=== PATIENT | female | born 1975 | race Caucasian/White ===

== ENCOUNTER → 2017-02-26 | Outpatient (CLI) | payer BC | LOC: FIMAGING 07:37 | PROVIDERS: ATTEND Advanced Practice Midwife | DX: O09.512 Supervision of elderly primigravida, second trimester (principal); Z3A.22 22 weeks gestation of pregnancy ==

== ENCOUNTER 2017-06-27 05:15 | Inpatient (IN) | payer BC ==
[2017-06-27] MEDS ORDERED: TERBUTALINE SULFATE 1 MG/ML VIAL IV PRN (05:42)
[2017-06-27] MEDS ORDERED: OXYTOCIN/RINGERS LACTATE 1,000 ML IV PRN (05:42)
[2017-06-27] MEDS ORDERED: IBUPROFEN 600 MG TAB PO PRN (05:42)
[2017-06-27] MEDS ORDERED: EPSOM SALT 454 GM TP PRN (05:42)
[2017-06-27] MEDS ORDERED: MISOPROSTOL 200 MCG TAB PO PRN (05:42)
[2017-06-27] MEDS ORDERED: OLIVE OIL 118 ML BTL MISC PRN (05:42)
[2017-06-27] MEDS ORDERED: AMMONIA AROMATIC 1 EACH AMP IH PRN (05:42)
[2017-06-27] MEDS ORDERED: LR 1,000 ML IV PRN (05:42)
[2017-06-27] MEDS ORDERED: LIDOCAINE 1% 300 MG/30 ML SDV SC PRN (05:42)
[2017-06-27 06:42] LABS: PLATELET COUNT 146 10^3/uL (150-400)
[2017-06-27] MEDS ORDERED: LR 500 ML IV PRN (07:05)
--- NOTE | 2017-06-27 07:10 | PDGENHP ---
History and Physical History and Physical: CARE: [facility] HPI: Cristine Marquez is a [id number] with IUP@39-2 that presents to L&D for IOL. She denies any contractions, LOF, VB. She reports +FM EDC: 07/02/17 which is based on LMP: 09/01/16 which is known and consistent with Ultrasound at 7 weeks. Her is complicated by: AMA Review of Systems: Constitutional: Denies any fever, chills, or fatigue HEENT: denies any visual changes, difficulty swallowing, hearing loss Cardiovascular: Denies any chest pain, palpitations, leg swelling Respiratory: denies any cough, wheezing, or shortness of breathe GI: Denies any nausea, vomiting, diarrhea, constipation : denies any dysuria, urgency, frequency, vaginal bleeding Musculoskeletal: denies any muscle or bone pain Skin: denies any rashes Neuro: denies any headache, seizures, lightheadedness, dizziness, or loss of consciousness Psychiatric: denies any depression, anxiety, or SI/HI thoughts HISTORY: Previous OB history: G1 Past medical history: noncontributory Past surgical history: [ ] Medications: PNV Allergies (list reaction): sulfa- fever, hives LABS: Rh: AB positive ABS: Neg Rubella: Immune HbsAg: NR HIV: NR VDRL: NR 1hr: 100 GC: Neg Chlamydia: Neg Pap: Normal GBS: negative BMI: (prepreg) 19 PHYSICAL EXAM: Constitutional: WN, A&Ox3 HEENT: normocephalic atraumatic, supple Heart: RRR, no murmur Chest: CTA-B Abdomen: Soft, nontender, gravid SVE: 1/70/-2 Extremities: no edema, negative homans sign Neuro: grossly normal Psych: normal affect assessment: Reassuring FHTs, baseline 130, +accels, no decels, moderate variability Contractions: toco none Assessment: 1) [id number] with IUP@ 39-2wks 2) IOL 3) GBS negative 4) Cat 1 FHR tracing Plan: 1) Admit to L&D 2) pierce balloon placed 3) start pitocin in 2hours 4) pain management PRN 5) AROM when able 6) anticipate
[2017-06-27] MEDS: OXYTOCIN/RINGERS LACTATE 500 ML IV SCH (09:10)
[2017-06-27] MEDS ORDERED: AMMONIA AROMATIC 1 EACH AMP IH ONE (10:22)
[2017-06-27] MEDS ORDERED: OLIVE OIL 118 ML BTL ONE (10:22)
[2017-06-27] MEDS ORDERED: LIDOCAINE 1% 300 MG/30 ML SDV ONE (10:22)
[2017-06-27] MEDS ORDERED: TERBUTALINE SULFATE 1 MG/ML VIAL ONE (10:23)
[2017-06-27] MEDS ORDERED: MISOPROSTOL 200 MCG TAB ONE (10:23)
[2017-06-27] MEDS ORDERED: OXYTOCIN 10 UNIT/ML VIAL ONE (10:23)
--- NOTE | 2017-06-27 11:52 | OBPROG ---
Labor Progress Note Assessment/Plan: Assessment: strip check FHR 145 +accels, no decels, mod BTBV contractions q 3-5min Pitocin @6mU Objective: 06/27/17 05:35 Patient ABO/Rh AB POSITIVE 06/27/17 05:35 Oxytocin Orders Assessment - Pre-Induction/Augmentation Assessment Gestational Age: 39 week(s) and 2 day(s) ICD10 Worksheet Patient Problems: Problems Problem Status Onset AMA (advanced maternal age) primigravida 35+ Acute Encounter for induction of labor Acute
--- NOTE | 2017-06-27 15:09 | OBPROG ---
Labor Progress Note Assessment/Plan: Assessment: [id number] with IUP@39-2wks IOL AMA GBS Negative CAt 1 FHR tracing AROM- Clear Plan: Cont pitocin pain management PRN reassess 2-4hr/PRN anticipate 06/27/17 15:11 06/27/17 15:12 Subjective/Intrapartum Course: 06/27/17 15:08 Pt doing well, denies any pain. Agreeable to arom at this time. she is ambulating. Objective: 06/27/17 05:35 Patient ABO/Rh AB POSITIVE 06/27/17 05:35 - SVE Dilation (cm): 3 Effacement (%): 75 Station: -1 Membranes: AROM Amniotic Fluid Color: Clear - Contraction Pattern Assessment Current Contraction Pattern: Regular - Procedures Non-surgical Procedures: Amniotomy Oxytocin Orders Assessment - Pre-Induction/Augmentation Assessment Gestational Age: 39 week(s) and 2 day(s) ICD10 Worksheet Patient Problems: Problems Problem Status Onset AMA (advanced maternal age) primigravida 35+ Acute Encounter for induction of labor Acute - ICD10 Problem Qualifiers (1) Encounter for induction of labor (2) AMA (advanced maternal age) primigravida 35+
--- NOTE | 2017-06-27 15:58 | OBPROG ---
Labor Progress Note Assessment/Plan: Assessment: [id number] with IUP@39-2wks AMA IOL GBS Negative cat 1 FHR tracing Plan: cont pitocin Recommended AROM- which pt declines at this time, will consider in 1 hr pain management PRN anticipate Subjective/Intrapartum Course: Pt doing well, she denies any pain. She is ambulating. FOB/Dental Professional @ BS, supportive. Objective: 06/27/17 05:35 Patient ABO/Rh AB POSITIVE 06/27/17 05:35 - SVE Dilation (cm): 3 Effacement (%): 75 Station: -1 - Contraction Pattern Assessment Current Contraction Pattern: Regular - FHR Assessment Salas FHR (bpm): 135 FHR Pattern Variability: Moderate FHR Category: 1 Oxytocin Orders Assessment - Pre-Induction/Augmentation Assessment Gestational Age: 39 week(s) and 2 day(s) ICD10 Worksheet Patient Problems: Problems Problem Status Onset AMA (advanced maternal age) primigravida 35+ Acute Encounter for induction of labor Acute
[2017-06-27] MEDS ORDERED: fentaNYL 100 MCG/2 ML INJ ONE (17:35)
[2017-06-27] MEDS ORDERED: PHENYLEPHRINE HCL 100 MCG/ML SYR ONE (17:35)
[2017-06-27] MEDS ORDERED: fentaNYL 200 MCG, BUPIVACAINE 0.5% 20 ML in NS 100 ML EP SCH (18:00)
--- NOTE | 2017-06-27 18:14 | PREANESOB ---
Obstetric Pre-Anesthesia Info - General Info Proposed Procedure: aug labor : 2 Para: 0 FLIP: 07/02/17 Gestational Age: 39 week(s) and 2 day(s) - Info Status: Full Term Monitors: External FHR Pattern: Reassuring - Labor Status Cervical Dilation per last OB SVE: 3 Station per last OB SVE: -1 Amniotic Fluid Color: Clear Indications for Labor Analgesia: Augmentation of Labor, Pain Control Labor Epidural: Yes Anesthesia Allergies/Adverse Reactions: Allergy/AdvReac Type Severity Reaction Status Date / Time Sulfa (Sulfonamide Allergy Verified 06/27/17 05:40 Antibiotics) Home Medications: Medication Instructions Recorded Dha 06/27/17 Iron 06/27/17 06/27/17 Visit Medications: Generic Name Dose Route Start Last Admin Trade Name Freq PRN Reason Stop Dose Admin Ammonia (Aromatic Spirit) 1 each 06/27/17 05:42 Ammonia Aromatic IH 07/07/17 05:41 ONCE PRN Fainting Lactated Ringer's 1,000 mls @ 0 mls/hr 06/27/17 05:42 Lr IV 06/28/17 05:41 PRN PRN SEE PROTOCOL CONDITIONS Protocol Per Protocol Oxytocin/Lactated Ringer's 1,000 mls @ 0 mls/hr 06/27/17 05:42 Pitocin 20 Units/Lr (Premix) IV PRN PRN Post bleeding Per Protocol Lactated Ringer's 500 mls @ 500 mls/hr 06/27/17 07:05 Lr IV 06/28/17 07:05 PRN PRN Maternal Hypotension Oxytocin/Lactated Ringer's 500 mls @ 0 mls/hr 06/27/17 07:30 Pitocin 30 Units/Lr (Premix) IV 12/24/17 07:29 CONT [facility] Protocol Per Protocol Fentanyl 200 mcg/ Bupivacaine 100 mls @ 0 mls/hr 06/27/17 18:00 HCl 20 ml/ Sodium Chloride EP 07/07/17 17:59 CONT [facility] Protocol As Directed Ibuprofen 600 mg 06/27/17 05:42 Motrin PO ONCE PRN post , pain Lidocaine HCl 300 mg 06/27/17 05:42 Lidocaine Hcl 1% SC 12/24/17 05:41 ONCE PRN episiotomy Magnesium Sulfate 454 gm 06/27/17 05:42 Epsom Salt TP 12/24/17 05:41 Q1H PRN perineal discomfort Misoprostol 800 - 1,000 mcg 06/27/17 05:42 Cytotec PO 12/24/17 05:41 ONCE PRN Vaginal Atony/Bleeding [place] Oil 118 ml 06/27/17 05:42 Sweet Oil MISC 12/24/17 05:41 ONCE PRN perineal massage Terbutaline Sulfate 0.25 mg 06/27/17 05:42 Brethine IV 12/24/17 05:41 ONCE PRN Tachysystole Discontinued Medications Generic Name Dose Route Start Last Admin Trade Name Freq PRN Reason Stop Dose Admin Ammonia (Aromatic Spirit) Confirm 06/27/17 10:22 Ammonia Aromatic Administered 06/27/17 10:23 Dose 1 each IH .STK-MED ONE Fentanyl Confirm 06/27/17 17:35 Sublimaze Administered 06/27/17 17:36 Dose 100 mcg .ROUTE .STK-MED ONE Lidocaine HCl Confirm 06/27/17 10:22 Lidocaine Hcl 1% Administered 06/27/17 10:23 Dose 300 mg .ROUTE .STK-MED ONE Misoprostol Confirm 06/27/17 10:23 Cytotec Administered 06/27/17 10:24 Dose 1,000 mcg .ROUTE .STK-MED ONE [place] Oil Confirm 06/27/17 10:22 Sweet Oil Administered 06/27/17 10:23 Dose 118 ml .ROUTE .STK-MED ONE Oxytocin Confirm 06/27/17 10:23 Pitocin Administered 06/27/17 10:24 Dose 40 unit .ROUTE .STK-MED ONE Phenylephrine HCl Confirm 06/27/17 17:35 Neosynephrine Administered 06/27/17 17:36 Dose 1,000 mcg .ROUTE .STK-MED ONE Terbutaline Sulfate Confirm 06/27/17 10:23 Brethine Administered 06/27/17 10:24 Dose 1 mg .ROUTE .STK-MED ONE - Vital Signs Height/Weight (Nursing): Height 162.56 cm Weight 61.235 kg Labs: 06/27/17 05:35 Patient ABO/Rh AB POSITIVE 06/27/17 05:35
--- NOTE | 2017-06-27 18:14 | PDANEPAE ---
ANE History of Present Illness labor ANE Past Medical History - Cardiovascular History Hx Hypertension: No Hx Arrhythmias: No Hx Chest Pain: No Hx Coronary Artery / Peripheral Vascular Disease: No Hx CHF / Valvular Disease: No Hx Palpitations: No - Pulmonary History Hx COPD: No Hx Asthma/Reactive Airway Disease: No Hx Recent Upper Respiratory Infection: No Hx Oxygen in Use at Home: No Hx Sleep Apnea: No - Neurologic History Hx Cerebrovascular Accident: No Hx Seizures: No Hx Dementia: No - Endocrine History Hx Diabetes: No Hypothyroid: No Hyperthyroid: No - Renal History Hx Renal Disorders: No - Liver History Hx Hepatic Disorders: No - Chronic Pain History Chronic Pain: No ANE Review of Systems Review of Systems: - Exercise capacity Exercise capacity: >=4 METS ANE Patient History - Allergies Allergies/Adverse Reactions: Sulfa (Sulfonamide Antibiotics) Allergy (Verified 06/27/17 05:40) - Home Medications Home Medications: Dha 06/27/17 [Last Taken 06/26/17 15:00] Iron 06/27/17 [Last Taken Unknown] 06/27/17 [Last Taken 06/26/17 15:00] - Anes Hx Anes Hx: no prior problems - Smoking Hx Smoking Status: Never smoked ANE Labs/Vital Signs - Labs Result Diagrams: 06/27/17 05:35 - Vital Signs Height: 162.56 cm Weight: 61.235 kg ANE Physical Exam - Airway Mallampati Score: Class 2 Mouth exam: normal dental/mouth exam - Pulmonary Pulmonary: no respiratory distress - Cardiovascular Cardiovascular: regular rate and rhythym - ASA Status ASA Status: II ANE Anesthesia Plan Anesthesia Plan: spinal, epidural
[2017-06-27] MEDS ORDERED: LR 500 ML IV SCH (18:30)
[2017-06-27] MEDS ORDERED: fentaNYL 2MCG/ML/BUP 0.1% RTU 100 ML EP SCH (18:30)
--- NOTE | 2017-06-27 19:28 | OBPROG ---
Labor Progress Note Assessment/Plan: Assessment: [id number] with IUP@39-2wks AMA IOL GBS Negative cat 1 FHR tracing Plan: cont pitocin pt requesting ALYSSA at this time, anesthesia paged Subjective/Intrapartum Course: Pt breathing through contractions and states she desires ALYSSA for pain relief. She tried N2O for 5 minutes with little relief. Objective: 06/27/17 05:35 Patient ABO/Rh AB POSITIVE 06/27/17 05:35 - SVE Dilation (cm): 4 Effacement (%): 75 Station: -1 Membranes: AROM Amniotic Fluid Color: Clear - Contraction Pattern Assessment Current Contraction Pattern: Regular - Procedures Non-surgical Procedures: Amniotomy Oxytocin Orders Assessment - Pre-Induction/Augmentation Assessment Gestational Age: 39 week(s) and 2 day(s) ICD10 Worksheet Patient Problems: Problems Problem Status Onset AMA (advanced maternal age) primigravida 35+ Acute Encounter for induction of labor Acute
--- NOTE | 2017-06-27 19:30 | OBPROG ---
Labor Progress Note Assessment/Plan: Assessment: Strip check FHR cat 1: baseline 130, +Accels, no decels, mod BTBV toco: ctxs q 4-6 min SVE: 4/70/-1 Will reassess in 1-2hr if no cervical change will place IUPC Pt now comfortable with ALYSSA. 06/27/17 19:28 06/27/17 19:29 Subjective/Intrapartum Course: Pt breathing through contractions and states she desires ALYSSA for pain relief. She tried N2O for 5 minutes with little relief. Objective: 06/27/17 05:35 Patient ABO/Rh AB POSITIVE 06/27/17 05:35 - SVE Membranes: AROM Amniotic Fluid Color: Clear - Contraction Pattern Assessment Current Contraction Pattern: Regular - Procedures Non-surgical Procedures: Amniotomy Oxytocin Orders Assessment - Pre-Induction/Augmentation Assessment Gestational Age: 39 week(s) and 2 day(s) ICD10 Worksheet Patient Problems: Problems Problem Status Onset AMA (advanced maternal age) primigravida 35+ Acute Encounter for induction of labor Acute
--- NOTE | 2017-06-27 20:49 | OBPROG ---
Labor Progress Note Assessment/Plan: Assessment: [id number] with IUP@39-2wks IOL AMA GBS neg Cat 1 FHR tracing Protracted labor Plan: cont Pitocin PRN monitor IUPC/MVUs closely Dr Estevez aware of protracted labor reassess 2hr/PRN Subjective/Intrapartum Course: Pt comfortable with ALYSSA. She is feeling discouraged by minimal cervical change. Discussed POC- pt verbalizes understanding. Objective: 06/27/17 05:35 Patient ABO/Rh AB POSITIVE 06/27/17 05:35 - SVE Dilation (cm): 5 Effacement (%): 75 Station: -1 Membranes: AROM Amniotic Fluid Color: Clear - Contraction Pattern Assessment Current Contraction Pattern: Regular - FHR Assessment Salas FHR (bpm): 135 FHR Pattern Variability: Moderate FHR Category: 1 - Procedures Non-surgical Procedures: Amniotomy Oxytocin Orders Assessment - Pre-Induction/Augmentation Assessment Gestational Age: 39 week(s) and 2 day(s) ICD10 Worksheet Patient Problems: Problems Problem Status Onset AMA (advanced maternal age) primigravida 35+ Acute Encounter for induction of labor Acute
--- NOTE | 2017-06-27 23:06 | OBPROG ---
Labor Progress Note Assessment/Plan: Assessment: [id number] with IUP@39-2wks IOL AMA GBS neg Cat 1 FHR tracing Protracted labor Plan: cont Pitocin PRN monitor IUPC/MVUs closely Dr Estevez aware of protracted labor reassess 2hr/PRN Subjective/Intrapartum Course: Pt comfortable with ALYSSA. She is feeling discouraged by minimal cervical change. Discussed POC- pt verbalizes understanding. Objective: 06/27/17 05:35 Patient ABO/Rh AB POSITIVE 06/27/17 05:35 - SVE Dilation (cm): 5 Effacement (%): 90 Station: -1 Membranes: AROM Amniotic Fluid Color: Clear - Contraction Pattern Assessment Current Contraction Pattern: Regular - Procedures Non-surgical Procedures: Amniotomy Oxytocin Orders Assessment - Pre-Induction/Augmentation Assessment Gestational Age: 39 week(s) and 2 day(s) ICD10 Worksheet Patient Problems: Problems Problem Status Onset AMA (advanced maternal age) primigravida 35+ Acute Encounter for induction of labor Acute
[2017-06-28] MEDS: ACETAMINOPHEN 500 MG TAB PO PRN ×2 (01:07→08:39)
--- NOTE | 2017-06-28 02:10 | OBPROG ---
Labor Progress Note Assessment/Plan: Assessment: [id number] with IUP@39-2wks IOL AMA GBS neg Cat 1 FHR tracing Protracted labor/MVU<180 Plan: cont Pitocin Reassess 2hr/PRN discussed cervical change, will cont pitocin Subjective/Intrapartum Course: Pt comfortable with ALYSSA. She denies feeling any pain or pressure. Objective: 06/27/17 05:35 Patient ABO/Rh AB POSITIVE 06/27/17 05:35 - SVE Dilation (cm): 8 Effacement (%): 90 Station: -1 Membranes: AROM Amniotic Fluid Color: Clear - Contraction Pattern Assessment Current Contraction Pattern: Regular - Procedures Non-surgical Procedures: Amniotomy Oxytocin Orders Assessment - Pre-Induction/Augmentation Assessment Gestational Age: 39 week(s) and 2 day(s) ICD10 Worksheet Patient Problems: Problems Problem Status Onset AMA (advanced maternal age) primigravida 35+ Acute Encounter for induction of labor Acute
--- NOTE | 2017-06-28 05:35 | OBPROG ---
Labor Progress Note Assessment/Plan: Assessment: [id number] with IUP@39-2wks IOL AMA GBS neg Cat 1 FHR tracing Protracted labor Plan: cont Pitocin Reassess 2hr/PRN labor down x1 hr 06/28/17 05:34 Subjective/Intrapartum Course: Pt was uncomfortable- having left hip pain, relieved after hitting ALYSSA button. She denies any urge to push. Objective: 06/27/17 05:35 Patient ABO/Rh AB POSITIVE 06/27/17 05:35 - SVE Dilation (cm): 10 Effacement (%): 100 Station: 0 Membranes: AROM Amniotic Fluid Color: Clear - Contraction Pattern Assessment Current Contraction Pattern: Regular - Procedures Non-surgical Procedures: Amniotomy Oxytocin Orders Assessment - Pre-Induction/Augmentation Assessment Gestational Age: 39 week(s) and 2 day(s) ICD10 Worksheet Patient Problems: Problems Problem Status Onset AMA (advanced maternal age) primigravida 35+ Acute Encounter for induction of labor Acute
[2017-06-28] MEDS ORDERED: ACETAMINOPHEN 500 MG TAB PO PRN (08:33)
[2017-06-28] MEDS: LR 1,000 ML IV PRN ×2 (09:32→18:00)
[2017-06-28] MEDS ORDERED: LIDO/EPI 2% **for epidural** 20 ML SDV ONE ×2 (10:01→12:58)
[2017-06-28] MEDS: OXYTOCIN/RINGERS LACTATE 500 ML IV SCH (11:08)
[2017-06-28] MEDS ORDERED: ceFAZolin 2 GM/DEXTROSE 100 ML IV ONE ×2 (12:35→13:00)
[2017-06-28] MEDS ORDERED: CITRIC ACID/SODIUM CITRATE 30 ML UDCUP PO ONE (12:35)
[2017-06-28] MEDS ORDERED: OXYTOCIN 100 UNITS/10 ML VIAL ONE (12:57)
[2017-06-28] MEDS ORDERED: fentaNYL 100 MCG/2 ML INJ ONE (12:58)
[2017-06-28] MEDS ORDERED: LIDOCAINE 2% 5 ML SDV ONE ×2 (12:58)
[2017-06-28] MEDS ORDERED: BUPIVACAINE/DEXTROSE 7.5MG/ML 2 ML SPINAL AMP SP ONE (12:58)
[2017-06-28] MEDS ORDERED: ONDANSETRON 4 MG/2 ML VIAL ONE (12:58)
[2017-06-28] MEDS ORDERED: morphINE PF 5 MG/10 ML INJ ONE (12:59)
--- NOTE | 2017-06-28 13:33 | OBPROG ---
Labor Progress Note Assessment/Plan: Assessment: 42 y/o @39 2/7 weeks for elective IOL Plan: Patient has been pushing on and off for the last 5 hours with very little descent of head; suspect direct OP FHTs - Category I tracing Unable to apply Kiwi vacuum at this time secondary to large amount of caput and station Discussed with pt and spouse that despite strong pushing, maternal effort and multiple position changes, recommend proceeding with a PCS secondary to arrest of descent Discussed R/B/A of procedure with pt including but not limited to bleeding, infection and damage to surrounding organs Pt understands all the risks and wants to proceed with surgery at this time Abx certified addiction counselor to OR SCDs for DVT prophylaxis 06/28/17 13:33 Subjective/Intrapartum Course: Pt was uncomfortable- having left hip pain, relieved after hitting ALYSSA button. She denies any urge to push. 06/28/17 13:40 Pt was c/o LLQ pain, that is interfering with her pushing; she was re-bolused and pain resolved. She labored down and then began pushing again and now is c/o a RITTER. She is very frustrated and has tried everything she has to push baby boy out. Objective: 06/27/17 05:35 Patient ABO/Rh AB POSITIVE 06/27/17 05:35 - SVE Dilation (cm): 10 Effacement (%): 100 Station: +2 Membranes: AROM Amniotic Fluid Color: Clear - Contraction Pattern Assessment Current Contraction Pattern: Regular - FHR Assessment Salas FHR (bpm): 140 FHR Pattern Variability: Moderate FHR Category: 1 - Procedures Non-surgical Procedures: Amniotomy Oxytocin Orders Assessment - Pre-Induction/Augmentation Assessment Gestational Age: 39 week(s) and 2 day(s) ICD10 Worksheet Patient Problems: Problems Problem Status Onset AMA (advanced maternal age) primigravida 35+ Acute Encounter for induction of labor Acute
[2017-06-28] MEDS ORDERED: MIDAZOLAM 2 MG/2 ML VIAL ONE (14:23)
[2017-06-28] MEDS ORDERED: HYDROmorphONE/DILAUDID 1 MG/ML INJ IVP PRN ×3 (14:58→15:50)
[2017-06-28] MEDS ORDERED: MEPERIDINE 25 MG/0.5 ML AMP IVP PRN (14:58)
[2017-06-28] MEDS ORDERED: HYDROCODONE/APAP 5/325 TAB PO PRN (14:58)
[2017-06-28] MEDS ORDERED: NALOXONE HCL 0.4 MG/ML INJ IVP PRN ×2 (14:58)
[2017-06-28] MEDS ORDERED: PHENYLEPHRINE HCL 100 MCG/ML SYR IVP PRN (14:58)
[2017-06-28] MEDS ORDERED: ONDANSETRON 4 MG/2 ML VIAL IVP PRN ×2 (14:58)
[2017-06-28] MEDS ORDERED: fentaNYL 100 MCG/2 ML INJ IVP PRN (14:58)
[2017-06-28] MEDS ORDERED: HYDROmorphONE/DILAUDID 2 MG/ML INJ ONE ×3 (15:05→17:44)
--- NOTE | 2017-06-28 15:05 | POSTANESTH ---
Post Anesthetic Evaluation Cardiovascular Status: Normal, Stable Respiratory Status: Normal, Stable Level of Consciousness/Mental Status: Can Participate in Eval Pain Control: Adequate, Prn Tx Ordered (Pt continues to have headache and body aches similar to preop. No incisional pain at this time.) Nausea/Vomiting Control: Adequate, Prn Tx Ordered Complications Possibly Related to Anesthesia: None Noted
[2017-06-28] MEDS: HYDROmorphONE/DILAUDID 2 MG/ML INJ IVP PRN ×3 (15:15→18:11)
[2017-06-28] MEDS ORDERED: SIMETHICONE 80 MG TAB CHEW PO PRN (15:16)
[2017-06-28] MEDS ORDERED: MAGNESIUM HYDROXIDE 30 ML UDCUP PO PRN (15:16)
[2017-06-28] MEDS ORDERED: LACTULOSE 20 GM/30 ML UDCUP PO PRN (15:16)
[2017-06-28] MEDS ORDERED: BISACODYL 10 MG SUPP PR PRN (15:16)
[2017-06-28] MEDS ORDERED: POLYETHYLENE GLYCOL 3350 17 GM PKT PO PRN (15:16)
--- NOTE | 2017-06-28 15:25 | OBDEL ---
Info Type: Primary Presentation at Delivery: Vertex (LOT) L&D Analgesia/Anesthesia Type: Epidural GBS+: No Intrapartum Medications: Generic Name Dose Route Start Last Admin Trade Name Freq PRN Reason Stop Dose Admin Oxytocin/Lactated Ringer's 500 mls @ 0 mls/hr 06/27/17 07:30 06/28/17 11:08 Pitocin 30 Units/Lr (Premix) IV 12/24/17 07:29 500 mls CONT GILBERT Administration Protocol Per Protocol Lactated Ringer's 500 mls @ 0 mls/hr 06/27/17 18:30 06/27/17 17:30 Lr IV 12/24/17 18:29 500 mls CONT GILBERT Administration As Directed Lactated Ringer's 1,000 mls @ 0 mls/hr 06/28/17 09:01 06/28/17 09:32 Lr IV 12/25/17 09:00 1,000 mls PRN PRN Administration SEE PROTOCOL CONDITIONS Protocol Per Protocol Discontinued Medications Generic Name Dose Route Start Last Admin Trade Name Frestan PRN Reason Stop Dose Admin Acetaminophen 1,000 mg 06/28/17 00:43 06/28/17 08:39 Tylenol PO 12/25/17 00:42 1,000 mg Q6HRS PRN Administration Pain, Mild/Fever, Can Take PO Citric Acid/Sodium Citrate 30 ml 06/28/17 12:35 06/28/17 13:20 Bicitra PO 06/28/17 12:36 30 ml ONCALL ONE Administration Cefazolin Sodium/Dextrose 100 mls @ 200 mls/hr 06/28/17 13:00 06/28/17 13:17 Ancef 2 Gm (Premix) IV 06/28/17 13:29 100 mls ONCE ONE Administration - Infant Care Provider Drawing Press Operator/STRUCTURES MECHANIC: Sho Cerda - Hospital Course Intrapartum: Pt was uncomfortable- having left hip pain, relieved after hitting ALYSSA button. She denies any urge to push. 06/28/17 13:40 Pt was c/o LLQ pain, that is interfering with her pushing; she was re-bolused and pain resolved. She labored down and then began pushing again and now is c/o a RITTER. She is very frustrated and has tried everything she has to push baby boy out. Indications for Delivery: Elective (IOL) Vaginal Delivery - Labor and Delivery Amniotic Fluid Color: Clear Non-surgical Procedures: Amniotomy Operative Report - Delivery Pre-op Diagnoses: IUP @ 39 3/7 wks for elective IOL with arrest of descent, prolonged second stage of labor Post-op Diagnoses: IUP @ 39 3/7 wks for elective IOL with arrest of descent, prolonged second stage of labor History of Prior Section: No Number of Prior Sections: 0 Nulliparous Prior to Delivery: Yes Indications for Current Section: Arrest of Descent Procedure: Unscheduled, Low Transverse Surgeon: Candice Jain Embroiderer: Phyllis Stahl Anesthesiologist: Kit Gillis Complications: None Findings: A viable male born at 1403 in cephalic presentation with 8 and 9 Apgars. Cord clamping was delayed x 60 seconds. Cord clamped x 2 and then cut. to waiting STRUCTURES MECHANIC. Cord blood obtained. Placenta delivered intact spontaneously with 3-vc. Grossly normal appearing uterus, tubes and ovaries b/ l. Small R LARRY hematoma noted after closure of hysterotomy, no change in size throughout the closure and no active bleeding noted. Kasie was placed on uterine incision for further hemostasis. Specimen(s)/Path: Other (Specify) (none) IV Fluid (ml): 1,500 EBL: 800 cc UO: 200 cc concentrated urine Data FLIP: 07/02/17 Gestational Age: 39 week(s) and 3 day(s) ICD10 Worksheet Patient Problems: Problems Problem Status Onset AMA (advanced maternal age) primigravida 35+ Acute Encounter for induction of labor Acute
[2017-06-28] MEDS ORDERED: ZOLPIDEM TARTRATE 5 MG TAB PO PRN (18:47)
[2017-06-28] MEDS ORDERED: HYDROmorphONE/DILAUDID 2 MG/ML INJ IVP ONE (19:15)
[2017-06-28] MEDS: HYDROCODONE/APAP 5/325 TAB PO PRN (20:57)
[2017-06-29] MEDS: IBUPROFEN 600 MG TAB PO PRN ×4 (05:32→23:52)
[2017-06-29] MEDS: HYDROCODONE/APAP 5/325 TAB PO PRN ×4 (05:32→17:39)
[2017-06-29] MEDS: SENNOSIDES/DOCUSATE SODIUM TAB PO SCH ×3 (05:36→21:46)
--- NOTE | 2017-06-29 07:31 | GOP ---
[f rep st] OPERATIVE REPORT DATE OF OPERATION: 06/28/2017 SURGEON: Candice Jain DO SUBSTITUTE BUS DRIVER: RICKY Hendricks ANESTHESIA: Spinal. ANESTHESIOLOGIST: Kit Gillis MD PREOPERATIVE DIAGNOSIS: Intrauterine at 39 and 3/7 weeks, for elective induction of labor with arrest of descent, prolonged 2nd stage of labor. POSTOPERATIVE DIAGNOSIS: Intrauterine at 39 and 3/7 weeks, for elective induction of labor with arrest of descent, prolonged 2nd stage of labor. PROCEDURE PERFORMED: Primary low transverse section. FINDINGS: A viable male infant born at 1403 in cephalic presentation, left occiput transverse, with 8 and 9 Apgars. Cord clamping was delayed x60 seconds. Cord was then clamped x2 and cut, infant to waiting OPERATIONS CHIEF. Cord blood was obtained. Placenta delivered intact spontaneously with 3-vessel cord. Grossly normal-appearing uterus, tubes, and ovaries bilaterally. However, there was a small right lower uterine segment hematoma noted after closure of hysterotomy. No change in size throughout the closure. No active bleeding noted. Kasie was placed on the uterine incision for further hemostasis. ESTIMATED BLOOD LOSS: 800 cc. INDICATIONS: The patient is a 42-year-old 1, para 0, at 39 and 3/7 weeks, who presents to Labor and Delivery for induction of labor. The patient was complete early in the morning around 0200. She labored down and then became uncomfortable with left hip pain, and left lower quadrant pain. The patient then pushed on and off for about 4-5 hours with very little descent of head, suspect OP. heart tones were category 1 tracing. A kiwi vacuum was unable to be applied secondary to large amount of caput and station. Despite strong pushing and maternal effort, multiple position changes, recommend proceeding with primary secondary to arrest of descent and prolonged 2nd stage of labor. Discussed risks, benefits, alternatives of procedure with patient including, but not limited to, bleeding, infection, damage to surrounding organs , another procedure, hysterectomy. The patient understands all risks of the procedure, wants to proceed with surgery at this time. The patient was properly consented, and informed consent was obtained. DESCRIPTION OF PROCEDURE: The patient was taken to the operating room where epidural anesthesia was re-bolused. The patient was prepped and draped in the usual sterile fashion in dorsal supine position with leftward tilt. A Pfannenstiel skin incision was made with a scalpel, and carried through the underlying layer of fascia using the Bovie. The fascia was incised in midline and extended laterally using Salas scissors. Noel clamps were then used to elevate the superior aspect of fascial incision, which was elevated and the underlying rectus muscles dissected off bluntly and using Salas scissors. Attention was then turned to the inferior aspect of fascial incision, which in a similar fashion was grasped with Noel clamps, elevated, underlying rectus muscles were dissected off bluntly and using Salas scissors. Rectus muscles were then dissected in the midline. Peritoneum was identified and entered using Metzenbaum scissors. This incision was then extended superiorly and inferiorly with good visualization of bladder. Bladder blade was then inserted. Vesicouterine peritoneum was identified, entered sharply using Metzenbaum scissors. Incision was then extended laterally and the bladder flap was created digitally. Bladder blade was then reinserted. Lower uterine segment was incised in transverse fashion using scalpel, and extended anteriorly and posteriorly bluntly with manual traction. Clear fluid was noted upon entry to amniotic sac. was then subsequently delivered after vaginal hand down below assisted with moving head up out of the pelvis. Head was noted to be anteflexed and in left occiput transverse position. The nose and mouth were bulb suctioned. Cord was delayed clamping for 60 seconds. The cord was then clamped x2 and cut. was subsequently handed to awaiting nursery nurse. Placenta was then delivered spontaneously intact with 3-vessel cord noted. Uterus was then exteriorized, cleared of all clots and debris. Uterine incision was repaired in 2 layers using 0 Vicryl suture. During this closure, a small right lower uterine segment hematoma was noted. The 1st layer of the uterus was closed with a running lock stitch of 0 Vicryl. Hemostasis was noted. Second layer was an imbricating layer with 0 Vicryl. Again, hemostasis was noted. We inspected the right lower uterine segment hematoma and it did not change in size and was not actively bleeding. The uterus was then returned to the abdomen. Gutters were cleared of all blood , blood clots and debris. Uterus was re-examined and noted to be hemostatic. The hematoma seemed to be hemostatic as well, and stable in size. Kasie was placed on the hysterotomy incision for further hemostasis. The rectus muscles were reapproximated in the midline using 3-0 Vicryl. The fascia was then closed with 0 Vicryl suture, and hemostasis noted. The skin was then closed with 4-0 Vicryl on a Ezequiel needle. Patient tolerated the procedure well. No complications. Sponge, lap, and instrument counts correct x2. The patient was stable at the completion of the procedure, and was transferred to recovery room in stable condition. IV FLUIDS: 1500 cc LR. URINE OUTPUT: 200 cc of clear urine at the end of the procedure. COMPLICATIONS: None. /[id number]/[id number] MTDD
--- NOTE | 2017-06-29 09:52 | POSTANESTH ---
Post Anesthetic Evaluation Cardiovascular Status: Normal, Stable Respiratory Status: Normal, Stable Level of Consciousness/Mental Status: Can Participate in Eval Pain Control: Adequate, Prn Tx Ordered Nausea/Vomiting Control: Adequate, Prn Tx Ordered Complications Possibly Related to Anesthesia: None Noted (uneventful resolution of epidural. feeling much better after sleeping last night.)
--- NOTE | 2017-06-29 10:28 | OBPP ---
Progress Note Assessment/Plan: Assessment: 42 y/o s/p Primary C/S for failure to descend POD #1 Plan: Routine PP care Advance diet/activity as tolerated Oral pain meds as needed 06/29/17 10:20 Subjective/ Course: 06/29/17 10:28 Patient is doing well this morning. Reports lochia to be light, just started taking oral pain meds and states pain well controlled, advancing to regular diet this morning. Wharton catheter discontinued this AM. is going well, although baby is sleepy. Objective: 06/29/17 06:10 Patient ABO/Rh AB POSITIVE 06/27/17 05:35 Temp Pulse Resp BP Pulse Ox 36.0 C 80 14 104/70 95 06/29/17 07:45 06/29/17 09:30 06/29/17 09:30 06/29/17 07:45 06/29/17 07:45 VSS Respirations unlabored Extremities with minimal edema Lochia sml Fundus firm Dressing D/I Nipples intact Uterine Position/Fundal Height: At Umbilicus Uterine Tone: Firm Physical Exam - Physical Exam EENT: PERRL/EOMI Neck: non-tender Respiratory: chest non-tender, normal breath sounds Cardiac/Chest: normal peripheral pulses, regular rate, rhythm, edema (mild pedal edema) Abdomen: hypoactive bowel sounds Extremities: normal range of motion Skin: normal color Neuro/Psych: no motor/sensory deficits, alert, normal mood/affect, oriented x 3
[2017-06-29] MEDS: FERRO-SEQUELS 65 MG TAB.ER PO SCH (21:46)
[2017-06-29] MEDS: DOCUSATE SODIUM 100 MG CAP PO PRN (21:46)
[2017-06-29] MEDS: oxyCODONE IR 5 MG TAB PO PRN (21:46)
[2017-06-29] MEDS: ACETAMINOPHEN 325 MG TAB PO SCH (23:52)
[2017-06-30] MEDS: oxyCODONE IR 5 MG TAB PO PRN ×6 (01:48→22:29)
[2017-06-30] MEDS: ACETAMINOPHEN 325 MG TAB PO SCH ×4 (05:46→23:40)
[2017-06-30] MEDS: IBUPROFEN 600 MG TAB PO PRN ×3 (05:46→19:33)
[2017-06-30] MEDS: SENNOSIDES/DOCUSATE SODIUM TAB PO SCH ×2 (08:29→19:33)
[2017-06-30] MEDS: FERRO-SEQUELS 65 MG TAB.ER PO SCH ×2 (08:29→19:33)
--- NOTE | 2017-06-30 13:45 | OBPP ---
Progress Note Assessment/Plan: Assessment: 1) s/p 1LTCS with R LARRY hematoma POD # 2 - pt is stable 2) Anemia - pt is asymptomatic Plan: Continue routine post-op care Encourage ambulation Cont Tylenol and Motrin q6 hrs and Oxy IR q4 hrs for pain control Cont iron and colace Plan for d/c home in 24-48 hrs 06/30/17 13:40 Subjective/ Course: 06/29/17 10:28 Patient is doing well this morning. Reports lochia to be light, just started taking oral pain meds and states pain well controlled, advancing to regular diet this morning. Wharton catheter discontinued this AM. is going well, although baby is sleepy. 06/30/17 13:45 Pt seen and examined. She is very emotional and tearful. Trying to understand why she had a . States her pain is well controlled at this time. She is OOB, romy regular diet, voiding and passing flatus. No BM yet. She is having difficulty with BF and latch, using donor milk. Objective: 06/29/17 06:10 Patient ABO/Rh AB POSITIVE 06/27/17 05:35 Temp Pulse Resp BP Pulse Ox 36.3 C 76 14 113/73 99 06/30/17 09:20 06/30/17 09:20 06/30/17 09:20 06/30/17 09:20 06/30/17 09:20 Uterine Position/Fundal Height: Umbilicus -2 Uterine Tone: Firm Physical Exam - Physical Exam Respiratory: lungs clear, normal breath sounds Cardiac/Chest: regular rate, rhythm Abdomen: normal bowel sounds, soft, flatus (+), incision (C/D/I, well approximated), other (appropriate tenderness) Extremities: non-tender, normal inspection Skin: normal color, warm/dry Neuro/Psych: alert, normal mood/affect, oriented x 3
[2017-07-01] MEDS: ACETAMINOPHEN 325 MG TAB PO SCH ×4 (02:09→17:33)
[2017-07-01] MEDS: IBUPROFEN 600 MG TAB PO PRN ×3 (02:10→14:23)
[2017-07-01] MEDS: oxyCODONE IR 5 MG TAB PO PRN ×4 (02:10→10:15)
[2017-07-01] MEDS: FERRO-SEQUELS 65 MG TAB.ER PO SCH (08:06)
[2017-07-01] MEDS: DOCUSATE SODIUM 100 MG CAP PO PRN (08:08)
[2017-07-01 08:20] VITALS: BP 124/84
[2017-07-01] MEDS: SENNOSIDES/DOCUSATE SODIUM TAB PO SCH (14:53)
--- NOTE | 2017-07-01 16:44 | OBPP ---
Progress Note Assessment/Plan: Assessment: pod# 3 s/p PLTCS anemia breast feeding and pumping Plan: routine post care iron follow up instructions mood precautions 07/01/17 16:41 Subjective/ Course: 06/29/17 10:28 Patient is doing well this morning. Reports lochia to be light, just started taking oral pain meds and states pain well controlled, advancing to regular diet this morning. Wharton catheter discontinued this AM. is going well, although baby is sleepy. 06/30/17 13:45 Pt seen and examined. She is very emotional and tearful. Trying to understand why she had a . States her pain is well controlled at this time. She is OOB, romy regular diet, voiding and passing flatus. No BM yet. She is having difficulty with BF and latch, using donor milk. 07/01/17 16:42 patient is doing well. pain is well controlled. really wants to go home. is still processing need for c section and struggling with breast feeding but wants to go home. [facility] has good support. moms comes into town tomorrow. feels will be more comfortable at home and appreciates our support. normal lochia. working on breast feeding. pumping. baby is getting donor milk, Objective: 06/29/17 06:10 Patient ABO/Rh AB POSITIVE 06/27/17 05:35 Temp Pulse Resp BP Pulse Ox 36.9 C 87 14 124/84 H 96 07/01/17 08:00 07/01/17 08:00 07/01/17 08:00 07/01/17 08:00 07/01/17 08:00 Physical Exam - Physical Exam Neck: non-tender, full range of motion, supple Respiratory: chest non-tender, lungs clear, normal breath sounds Cardiac/Chest: normal peripheral pulses, regular rate, rhythm Abdomen: normal bowel sounds, non-tender Extremities: normal range of motion, non-tender, normal inspection, normal capillary refill Skin: normal color, warm/dry Neuro/Psych: no motor/sensory deficits, alert, normal mood/affect, oriented x 3
--- NOTE | 2017-07-01 16:44 | OBGCSDC ---
General Delivery Information - General Info : 2 Para: 0 Abortions: 1 Type: Primary L&D Analgesia/Anesthesia Type: Epidural Admission Date: 06/27/17 Labs: Patient ABO/Rh AB POSITIVE 06/27/17 05:35 Hct 29.1 % (38.0-47.0) L 06/29/17 06:10 - Hospital Course Intrapartum: Pt was uncomfortable- having left hip pain, relieved after hitting ALYSSA button. She denies any urge to push. 06/28/17 13:40 Pt was c/o LLQ pain, that is interfering with her pushing; she was re-bolused and pain resolved. She labored down and then began pushing again and now is c/o a RITTER. She is very frustrated and has tried everything she has to push baby boy out. : 06/29/17 10:28 Patient is doing well this morning. Reports lochia to be light, just started taking oral pain meds and states pain well controlled, advancing to regular diet this morning. Wharton catheter discontinued this AM. is going well, although baby is sleepy. 06/30/17 13:45 Pt seen and examined. She is very emotional and tearful. Trying to understand why she had a . States her pain is well controlled at this time. She is OOB, romy regular diet, voiding and passing flatus. No BM yet. She is having difficulty with BF and latch, using donor milk. 07/01/17 16:42 patient is doing well. pain is well controlled. really wants to go home. is still processing need for c section and struggling with breast feeding but wants to go home. states has good support. moms comes into town tomorrow. feels will be more comfortable at home and appreciates our support. normal lochia. working on breast feeding. pumping. baby is getting donor milk, Vaginal - Diagnosis Amniotic Fluid Color: Clear - Procedures Non-surgical Procedures: Amniotomy - Delivery Providers Surgeon: Candice Jain Membership Sales Manager: Phyllis Stahl Anesthesiologist: Kit Gillis - Delivery Number of Prior Sections: 0 Indications for Current Section: Arrest of Descent Non-surgical Procedures: Amniotomy Surgical Procedures: Unscheduled, Low Transverse Intra-op Complications: None EBL: 800 cc UO: 200 cc concentrated urine Data FLIP: 07/02/17 Gestational Age: 39 week(s) and 6 day(s) Salas Delivery Date: 06/28/17 Delivery Time: 14:03 Weight (gm): 3582 g Discharge Information - Discharge Information Prescriptions: Ibuprofen [Motrin (*)] 600 mg PO Q6HRS PRN #30 tab PRN Reason: Pain, Mild oxyCODONE IR [Oxycodone Ir (*)] 5 - 10 mg PO Q4H PRN #30 tab PRN Reason: PAIN, MODERATE TO SEVERE PAIN Condition: Good Instruction/Follow Up: Two Weeks (incision and mood check), Six Weeks (post visit)
== END 2017-07-01 15:45 | disposition home or self-care (01) | DRG 766 ==
LOC: FLD 05:15 → FOB 06-28 19:42
PROVIDERS: ADMIT Obstetrics & Gynecology; ATTEND Obstetrics & Gynecology
PROC: 3E033VJ Introduction of Other Hormone into Peripheral Vein, Percutaneous Approach (ICD-10-PCS; 2017-06-27)
PROC: 10907ZC Drainage of Amniotic Fluid, Therapeutic from Products of Conception, Via Natural or Artificial Opening (ICD-10-PCS; 2017-06-27)
PROC: 10D00Z1 Extraction of Products of Conception, Low, Open Approach (ICD-10-PCS; principal; 2017-06-28)
DX: O32.4XX0 Maternal care for high head at term, not applicable or unspecified (principal); O63.1 Prolonged second stage (of labor); O90.2 Hematoma of obstetric wound; Z88.2 Allergy status to sulfonamides; Z3A.39 39 weeks gestation of pregnancy; Z37.0 Single live birth
CPT/HCPCS: J0690; J1170; J2250; J2274; J2370; J2405; J2590; J3010; J3105